=== PATIENT | female | born 1930 | race Caucasian/White ===

== ENCOUNTER 2017-09-16 12:51 | Inpatient (IN) | payer MEDICARE, OTHER ==
[2017-09-16 13:16] LABS: BEDSIDE GLUCOSE 173 MG/DL (83-110)
[2017-09-16 13:35] LABS: BASO # 0.1 10^3/uL (0.0-0.2); BASO % 0.5 % (0.0-1.0); EOS # 0.5 10^3/uL (0.0-0.50); EOS % 3.6 % (0.0-3.0); HEMATOCRIT 38.6 % (36.0-47.0); HEMOGLOBIN 12.1 g/dl (12.0-15.5); LYMPH # 2.5 10^3/uL (1.5-4.5); LYMPH % 18.7 % (24.0-44.0); MEAN CORPUSCULAR HEMOGLOBIN 29.7 pg (27.0-33.0); MEAN CORPUSCULAR HGB CONC 31.3 g/dl (32.0-36.5); MEAN CORPUSCULAR VOLUME 94.6 fl (80.0-96.0); MONO # 1.2 10^3/uL (0.0-0.8); NEUTROPHILS # 8.5 10^3/uL (1.8-7.7); NEUTROPHILS % 64.2 % (36.0-66.0); PLATELET COUNT, AUTOMATED 245 10^3/uL (150-450); RED BLOOD COUNT 4.08 10^6/uL (4.00-5.40); RED CELL DISTRIBUTION WIDTH 15.4 % (11.5-14.5); WHITE BLOOD COUNT 13.2 10^3/uL (4.0-10.0)
[2017-09-16 13:46] LABS: POS COUNT POS FLAG
[2017-09-16 14:03] LABS: ACETAMINOPHEN LEVEL < 2.0 UG/ML (10.0-30.0); ALBUMIN 3.3 GM/DL (3.2-5.2); ALBUMIN/GLOBULIN RATIO 1.03 (1.00-1.93); ALKALINE PHOSPHATASE 52 U/L (45-117); ALT/SGPT 26 U/L (12-78); ANION GAP 9 MEQ/L (8-16); AST/SGOT 12 U/L (7-37); BILIRUBIN,DIRECT < 0.1 MG/DL (0.0-0.2); BILIRUBIN,TOTAL 0.6 MG/DL (0.2-1.0); BLOOD UREA NITROGEN 45 MG/DL (7-18); CALCIUM LEVEL 11.8 MG/DL (8.8-10.2); CARBON DIOXIDE LEVEL 30 MEQ/L (21-32); CHLORIDE LEVEL 104 MEQ/L (98-107); CPK CREATINE PHOSPHOKINASE 23 U/L (26-192); CREATININE FOR GFR 1.36 MG/DL (0.55-1.30); ETHYL ALCOHOL (ETHANOL) 0.003 % (0.000-0.010); GLOMERULAR FILTRATION RATE 39.1 (>32); GLUCOSE, FASTING 150 MG/DL (70-100); POTASSIUM SERUM 4.4 MEQ/L (3.5-5.1); SALICYLATE LEVEL < 1.7 MG/DL (5.0-30.0); SODIUM LEVEL 143 MEQ/L (136-145); TOTAL PROTEIN 6.5 GM/DL (6.4-8.2)
[2017-09-16 15:27] LABS: BEDSIDE GLUCOSE 172 MG/DL (83-110)
[2017-09-16] MEDS: HYDROCORTISONE 100 MG/2 ML VIAL (J1720) IV (17:54)
[2017-09-16] MEDS: NS 500 ML IV (19:14)
[2017-09-16] MEDS: NS 1,000 ML IV (19:56)
[2017-09-16] MEDS: ADVAIR HFA 115/21MCG INHALER INH (21:00)
[2017-09-16] MEDS: levETIRAcetam 250MG TABLET (KEPPRA) PO (21:00)
[2017-09-16] MEDS: GABAPENTIN 300 MG CAP PO (21:00)
[2017-09-16] MEDS: DULoxetine 30 MG CAP (CYMBALTA) PO (21:00)
[2017-09-16] MEDS: MIRTAZAPINE 15 MG TAB PO (21:00)
[2017-09-16] MEDS ORDERED: oxyCODONE 5MG TAB PO (21:45)
[2017-09-16] MEDS ORDERED: BISACODYL 5 MG TAB PO (21:45)
[2017-09-16] MEDS ORDERED: ALBUTEROL 90 MCG/ACT 8GM HFA INHALER INH (21:45)
[2017-09-16] MEDS: CARVedilol 3.125 MG TAB PO (22:10)
[2017-09-17 00:49] LABS: ABG BASE EXCESS -0.8 (-2.0-2.0); ABG HCO3 25.4 MEQ/L (22.0-26.0); ABG O2 SATURATION 96.9 % (95.0-99.0); ABG PARTIAL PRESSURE CO2 48.2 mmHg (35.0-45.0); ABG PARTIAL PRESSURE O2 95.2 mmHg (75.0-100.0); ABG STANDARD HCO3 23.8 MEQ/L (22.0-26.0); ABG TOTAL CO2 26.8 MEQ/L (23.0-31.0); ABG pH (ARTERIAL) 7.339 UNITS (7.350-7.450)
[2017-09-17] MEDS: LATANOPROST 0.005% OPHTH SOLN 2.5 ML OS ×2 (00:56→21:49)
[2017-09-17 01:01] LABS: CALCIUM OXALATE CRYSTALS RFX SMALL; KETONE, URINE AUTO RFX TRACE mg/dL (NEGATIVE); LEUKOCYTE ESTERASE UR AUTO RFX NEGATIVE (NEGATIVE); NITRITE, URINE AUTO RFX NEGATIVE (NEGATIVE); RBC, URINE AUTO RFX 4 /HPF (0-3); SPECIFIC GRAVITY UR AUTO RFX 1.017 (1.002-1.035); SQUAM EPITHELIAL CELL UR AURFX 0 /HPF (0-6); WBC, URINE AUTO RFX 0 /HPF (0-3)
[2017-09-17 01:45] LABS: AMPHETAMINES LEVEL URINE NEGATIVE (NEGATIVE); BARBITURATES URINE NEGATIVE (NEGATIVE); BENZODIAZEPINES URINE NEGATIVE (NEGATIVE); CANNABINOIDS URINE NEGATIVE (NEGATIVE); COCAINE METABOLITE URINE NEGATIVE (NEGATIVE); METHADONE URINE NEGATIVE (NEGATIVE); OPIATES URINE POSITIVE (NEGATIVE); PHENCYCLIDINE URINE NEGATIVE (NEGATIVE)
[2017-09-17 04:47] LABS: LACTIC ACID SEPSIS PROTOCOL 1.5 MMOL/L (0.4-2.0)
[2017-09-17 04:52] LABS: ALBUMIN 2.9 GM/DL (3.2-5.2); ALBUMIN/GLOBULIN RATIO 0.81 (1.00-1.93); ALKALINE PHOSPHATASE 45 U/L (45-117); ALT/SGPT 29 U/L (12-78); ANION GAP 7 MEQ/L (8-16); AST/SGOT 55 U/L (7-37); BILIRUBIN,TOTAL 0.6 MG/DL (0.2-1.0); BLOOD UREA NITROGEN 59 MG/DL (7-18); CALCIUM LEVEL 11.2 MG/DL (8.8-10.2); CARBON DIOXIDE LEVEL 28 MEQ/L (21-32); CHLORIDE LEVEL 108 MEQ/L (98-107); CREATININE FOR GFR 1.97 MG/DL (0.55-1.30); GLOMERULAR FILTRATION RATE 25.5 (>32); GLUCOSE, FASTING 130 MG/DL (70-100); SODIUM LEVEL 143 MEQ/L (136-145); THYROID STIMULATING HORMONE 0.481 uIU/ML (0.358-3.740); TOTAL PROTEIN 6.5 GM/DL (6.4-8.2)
[2017-09-17 04:54] LABS: POTASSIUM SERUM 5.7 MEQ/L (3.5-5.1)
[2017-09-17] MEDS: HEPARIN SOD (PORCINE) 5000 UNITS/ML VIAL SC ×3 (06:00→21:49)
[2017-09-17 07:39] LABS: ANION GAP 6 MEQ/L (8-16); BLOOD UREA NITROGEN 61 MG/DL (7-18); CALCIUM LEVEL 11.6 MG/DL (8.8-10.2); CARBON DIOXIDE LEVEL 29 MEQ/L (21-32); CHLORIDE LEVEL 108 MEQ/L (98-107); CREATININE FOR GFR 1.88 MG/DL (0.55-1.30); GLOMERULAR FILTRATION RATE 26.9 (>32); GLUCOSE, FASTING 119 MG/DL (70-100); POTASSIUM SERUM 5.2 MEQ/L (3.5-5.1); SODIUM LEVEL 143 MEQ/L (136-145)
[2017-09-17] MEDS ORDERED: FUROSEMIDE 20 MG TAB PO (09:00)
[2017-09-17] MEDS ORDERED: FUROSEMIDE 40 MG TAB PO (09:00)
[2017-09-17] MEDS: DOCUSATE SODIUM 100 MG CAP PO (09:39)
[2017-09-17] MEDS: CARVedilol 3.125 MG TAB PO ×2 (09:40→21:57)
[2017-09-17] MEDS: PANTOPRAZOLE 40MG TAB (PROTONIX) PO (09:40)
[2017-09-17] MEDS: levETIRAcetam 250MG TABLET (KEPPRA) PO ×2 (09:40→21:48)
[2017-09-17] MEDS: DULoxetine 30 MG CAP (CYMBALTA) PO ×2 (09:40→21:48)
[2017-09-17] MEDS: predniSONE 10 MG TAB PO (09:41)
[2017-09-17] MEDS: GABAPENTIN 300 MG CAP PO ×2 (09:41→21:48)
[2017-09-17] MEDS: ADVAIR HFA 115/21MCG INHALER INH ×2 (09:41→21:28)
[2017-09-17] MEDS: VITAMIN D 1,000 INTERNATIONAL UNITS TABLET PO (09:42)
[2017-09-17] MEDS: NS 1,000 ML IV ×2 (09:49→21:35)
[2017-09-17 12:55] LABS: ANION GAP 8 MEQ/L (8-16); BLOOD UREA NITROGEN 63 MG/DL (7-18); CALCIUM LEVEL 11.2 MG/DL (8.8-10.2); CARBON DIOXIDE LEVEL 26 MEQ/L (21-32); CHLORIDE LEVEL 109 MEQ/L (98-107); CREATININE FOR GFR 1.63 MG/DL (0.55-1.30); GLOMERULAR FILTRATION RATE 31.7 (>32); GLUCOSE, FASTING 118 MG/DL (70-100); SODIUM LEVEL 143 MEQ/L (136-145)
[2017-09-17 12:56] LABS: POTASSIUM SERUM 5.3 MEQ/L (3.5-5.1)
[2017-09-17 17:03] LABS: KETONE, URINE AUTO RFX NEGATIVE (NEGATIVE); MUCUS, URINE RFX SMALL (NEGATIVE); RBC, URINE AUTO RFX 37 /HPF (0-3); SPECIFIC GRAVITY UR AUTO RFX 1.011 (1.002-1.035); SQUAM EPITHELIAL CELL UR AURFX 1 /HPF (0-6)
[2017-09-17 17:05] LABS: OSMOLALITY URINE 425 MOSM/KG (500-800)
[2017-09-17 17:13] LABS: LEUKOCYTE ESTERASE UR AUTO RFX 2+ (NEGATIVE); NITRITE, URINE AUTO RFX POSITIVE (NEGATIVE); WBC, URINE AUTO RFX 42 /HPF (0-3)
[2017-09-17 17:19] LABS: CHLORIDE,RANDOM URINE 24 MEQ/L; CREATININE,RANDOM URINE 84.4 MG/DL; POTASSIUM RANDOM URINE 60.4 MEQ/L; SODIUM,RANDOM URINE 26 MEQ/L; TOTAL PROTEIN,RANDOM URINE 13.8 MG/DL (0.0-12.0)
[2017-09-17 18:31] LABS: ANION GAP 9 MEQ/L (8-16); BLOOD UREA NITROGEN 63 MG/DL (7-18); CALCIUM LEVEL 11.2 MG/DL (8.8-10.2); CARBON DIOXIDE LEVEL 26 MEQ/L (21-32); CHLORIDE LEVEL 107 MEQ/L (98-107); CREATININE FOR GFR 1.62 MG/DL (0.55-1.30); GLOMERULAR FILTRATION RATE 31.9 (>32); GLUCOSE, FASTING 136 MG/DL (70-100); POTASSIUM SERUM 4.9 MEQ/L (3.5-5.1); SODIUM LEVEL 142 MEQ/L (136-145)
[2017-09-17] MEDS ORDERED: METOCLOPRAMIDE INJ 10MG/2ML VIAL (J2765) IV (21:00)
[2017-09-17] MEDS: MIRTAZAPINE 15 MG TAB PO (21:48)
[2017-09-18 00:22] LABS: ANION GAP 6 MEQ/L (8-16); BLOOD UREA NITROGEN 58 MG/DL (7-18); CALCIUM LEVEL 10.2 MG/DL (8.8-10.2); CARBON DIOXIDE LEVEL 27 MEQ/L (21-32); CHLORIDE LEVEL 110 MEQ/L (98-107); GLOMERULAR FILTRATION RATE 41.2 (>32); GLUCOSE, FASTING 102 MG/DL (70-100); POTASSIUM SERUM 4.5 MEQ/L (3.5-5.1); SODIUM LEVEL 143 MEQ/L (136-145)
[2017-09-18 04:30] LABS: HEMATOCRIT 31.4 % (36.0-47.0); MEAN CORPUSCULAR HEMOGLOBIN 29.8 pg (27.0-33.0); MEAN CORPUSCULAR HGB CONC 32.2 g/dl (32.0-36.5); MEAN CORPUSCULAR VOLUME 92.6 fl (80.0-96.0); PLATELET COUNT, AUTOMATED 192 10^3/uL (150-450); RED BLOOD COUNT 3.39 10^6/uL (4.00-5.40); RED CELL DISTRIBUTION WIDTH 15.4 % (11.5-14.5); WHITE BLOOD COUNT 12.1 10^3/uL (4.0-10.0)
[2017-09-18 04:37] LABS: HEMOGLOBIN 10.1 g/dl (12.0-15.5)
[2017-09-18 05:17] LABS: ALBUMIN 2.7 GM/DL (3.2-5.2); ALBUMIN/GLOBULIN RATIO 0.93 (1.00-1.93); ALKALINE PHOSPHATASE 40 U/L (45-117); ALT/SGPT 25 U/L (12-78); ANION GAP 6 MEQ/L (8-16); AST/SGOT 48 U/L (7-37); BILIRUBIN,TOTAL 0.6 MG/DL (0.2-1.0); BLOOD UREA NITROGEN 56 MG/DL (7-18); CALCIUM LEVEL 10.2 MG/DL (8.8-10.2); CARBON DIOXIDE LEVEL 27 MEQ/L (21-32); CHLORIDE LEVEL 111 MEQ/L (98-107); CREATININE FOR GFR 1.15 MG/DL (0.55-1.30); GLOMERULAR FILTRATION RATE 47.4 (>32); GLUCOSE, FASTING 80 MG/DL (70-100); MAGNESIUM LEVEL 2.3 MG/DL (1.8-2.4); POTASSIUM SERUM 4.4 MEQ/L (3.5-5.1); SODIUM LEVEL 144 MEQ/L (136-145); TOTAL PROTEIN 5.6 GM/DL (6.4-8.2)
[2017-09-18] MEDS: HEPARIN SOD (PORCINE) 5000 UNITS/ML VIAL SC ×3 (05:31→22:13)
[2017-09-18] MEDS: ADVAIR HFA 115/21MCG INHALER INH ×2 (08:31→23:42)
[2017-09-18] MEDS: GABAPENTIN 300 MG CAP PO ×2 (08:40→20:27)
[2017-09-18] MEDS: cefTRIAXone SOD 1 GM in D5W MINI-BAG PLUS 50 ML IV (08:40)
[2017-09-18] MEDS: DOCUSATE SODIUM 100 MG CAP PO (08:41)
[2017-09-18] MEDS: PANTOPRAZOLE 40MG TAB (PROTONIX) PO (08:41)
[2017-09-18] MEDS: predniSONE 10 MG TAB PO (08:41)
[2017-09-18] MEDS: CARVedilol 3.125 MG TAB PO ×2 (08:41→20:27)
[2017-09-18] MEDS: levETIRAcetam 250MG TABLET (KEPPRA) PO ×2 (08:42→20:28)
[2017-09-18] MEDS: DULoxetine 30 MG CAP (CYMBALTA) PO ×2 (08:42→20:28)
[2017-09-18 10:38] LABS: PTH INTACT < 6.3 PG/ML (18.5-88.0)
[2017-09-18 11:00] LABS: TOTAL 25(OH) VITAMIN D 60.6 NG/ML (30.0-100.0)
[2017-09-18 12:50] LABS: ANION GAP 8 MEQ/L (8-16); BLOOD UREA NITROGEN 51 MG/DL (7-18); CALCIUM LEVEL 10.7 MG/DL (8.8-10.2); CARBON DIOXIDE LEVEL 25 MEQ/L (21-32); CHLORIDE LEVEL 108 MEQ/L (98-107); CREATININE FOR GFR 1.15 MG/DL (0.55-1.30); GLOMERULAR FILTRATION RATE 47.4 (>32); GLUCOSE, FASTING 97 MG/DL (70-100); POTASSIUM SERUM 4.5 MEQ/L (3.5-5.1); SODIUM LEVEL 141 MEQ/L (136-145)
[2017-09-18] MEDS ORDERED: SLF 3 ML SYR IV (18:45)
[2017-09-18] MEDS: MIRTAZAPINE 15 MG TAB PO (20:28)
[2017-09-18] MEDS: LATANOPROST 0.005% OPHTH SOLN 2.5 ML OS (20:28)
[2017-09-18] MEDS: SLF 3 ML SYR IV (22:13)
[2017-09-19 04:43] LABS: HEMATOCRIT 32.9 % (36.0-47.0); HEMOGLOBIN 10.6 g/dl (12.0-15.5); MEAN CORPUSCULAR HEMOGLOBIN 29.6 pg (27.0-33.0); MEAN CORPUSCULAR HGB CONC 32.2 g/dl (32.0-36.5); MEAN CORPUSCULAR VOLUME 91.9 fl (80.0-96.0); PLATELET COUNT, AUTOMATED 212 10^3/uL (150-450); RED BLOOD COUNT 3.58 10^6/uL (4.00-5.40); RED CELL DISTRIBUTION WIDTH 15.2 % (11.5-14.5); WHITE BLOOD COUNT 9.7 10^3/uL (4.0-10.0)
[2017-09-19 05:05] LABS: ALBUMIN 2.6 GM/DL (3.2-5.2); ALBUMIN/GLOBULIN RATIO 0.74 (1.00-1.93); ALKALINE PHOSPHATASE 40 U/L (45-117); ALT/SGPT 24 U/L (12-78); ANION GAP 6 MEQ/L (8-16); AST/SGOT 27 U/L (7-37); BILIRUBIN,TOTAL 0.4 MG/DL (0.2-1.0); BLOOD UREA NITROGEN 45 MG/DL (7-18); CALCIUM LEVEL 11.1 MG/DL (8.8-10.2); CARBON DIOXIDE LEVEL 28 MEQ/L (21-32); CHLORIDE LEVEL 112 MEQ/L (98-107); CREATININE FOR GFR 0.95 MG/DL (0.55-1.30); GLOMERULAR FILTRATION RATE 59.1 (>32); GLUCOSE, FASTING 85 MG/DL (70-100); MAGNESIUM LEVEL 2.2 MG/DL (1.8-2.4); POTASSIUM SERUM 3.9 MEQ/L (3.5-5.1); SODIUM LEVEL 146 MEQ/L (136-145); TOTAL PROTEIN 6.1 GM/DL (6.4-8.2)
[2017-09-19] MEDS: SLF 3 ML SYR IV ×3 (06:08→21:50)
[2017-09-19] MEDS: HEPARIN SOD (PORCINE) 5000 UNITS/ML VIAL SC ×3 (06:08→21:49)
[2017-09-19] MEDS: ADVAIR HFA 115/21MCG INHALER INH ×2 (07:07→20:27)
[2017-09-19] MEDS: cefTRIAXone SOD 1 GM in D5W MINI-BAG PLUS 50 ML IV (08:06)
[2017-09-19] MEDS: GABAPENTIN 300 MG CAP PO ×2 (09:38→21:49)
[2017-09-19] MEDS: DULoxetine 30 MG CAP (CYMBALTA) PO ×2 (09:38→21:49)
[2017-09-19] MEDS: predniSONE 10 MG TAB PO (09:38)
[2017-09-19] MEDS: DOCUSATE SODIUM 100 MG CAP PO (09:38)
[2017-09-19] MEDS: PANTOPRAZOLE 40MG TAB (PROTONIX) PO (09:38)
[2017-09-19] MEDS: CARVedilol 3.125 MG TAB PO ×2 (09:38→21:49)
[2017-09-19] MEDS: levETIRAcetam 250MG TABLET (KEPPRA) PO ×2 (09:39→21:49)
[2017-09-19] MEDS: ACETAMINOPHEN 325 MG/10.15 ML UDC PO (12:32)
[2017-09-19] MEDS: MIRTAZAPINE 15 MG TAB PO (21:49)
[2017-09-19] MEDS: LATANOPROST 0.005% OPHTH SOLN 2.5 ML OS (21:49)
[2017-09-20 00:08] LABS: VITAMIN D 1,25 DIHYDROXY 81.2 pg/mL (19.9-79.3)
[2017-09-20] MEDS: SLF 3 ML SYR IV (06:00)
[2017-09-20] MEDS: HEPARIN SOD (PORCINE) 5000 UNITS/ML VIAL SC (06:00)
[2017-09-20 06:35] LABS: HEMATOCRIT 33.8 % (36.0-47.0); HEMOGLOBIN 10.8 g/dl (12.0-15.5); MEAN CORPUSCULAR VOLUME 90.6 fl (80.0-96.0); PLATELET COUNT, AUTOMATED 223 10^3/uL (150-450); RED BLOOD COUNT 3.73 10^6/uL (4.00-5.40); RED CELL DISTRIBUTION WIDTH 14.8 % (11.5-14.5); WHITE BLOOD COUNT 9.2 10^3/uL (4.0-10.0)
[2017-09-20 06:56] LABS: ALBUMIN 2.7 GM/DL (3.2-5.2); ALBUMIN/GLOBULIN RATIO 0.77 (1.00-1.93); ALKALINE PHOSPHATASE 38 U/L (45-117); ALT/SGPT 22 U/L (12-78); ANION GAP 6 MEQ/L (8-16); AST/SGOT 17 U/L (7-37); BILIRUBIN,TOTAL 0.4 MG/DL (0.2-1.0); BLOOD UREA NITROGEN 37 MG/DL (7-18); CALCIUM LEVEL 10.6 MG/DL (8.8-10.2); CARBON DIOXIDE LEVEL 28 MEQ/L (21-32); CHLORIDE LEVEL 112 MEQ/L (98-107); CREATININE FOR GFR 0.93 MG/DL (0.55-1.30); GLOMERULAR FILTRATION RATE > 60.0 (>32); GLUCOSE, FASTING 92 MG/DL (70-100); POTASSIUM SERUM 3.7 MEQ/L (3.5-5.1); SODIUM LEVEL 146 MEQ/L (136-145); TOTAL PROTEIN 6.2 GM/DL (6.4-8.2)
[2017-09-20] MEDS: ADVAIR HFA 115/21MCG INHALER INH (08:19)
[2017-09-20] MEDS: DULoxetine 30 MG CAP (CYMBALTA) PO (09:00)
[2017-09-20] MEDS: predniSONE 10 MG TAB PO (09:00)
[2017-09-20] MEDS: levETIRAcetam 250MG TABLET (KEPPRA) PO (09:01)
[2017-09-20] MEDS: GABAPENTIN 300 MG CAP PO (09:01)
[2017-09-20] MEDS: CARVedilol 3.125 MG TAB PO (09:01)
[2017-09-20] MEDS: PANTOPRAZOLE 40MG TAB (PROTONIX) PO (09:01)
[2017-09-20] MEDS: DOCUSATE SODIUM 100 MG CAP PO (09:01)
[2017-09-20] MEDS: cefTRIAXone SOD 1 GM in D5W MINI-BAG PLUS 50 ML IV (09:02)
[2017-09-21 00:08] LABS: LEVETIRACETAM (KEPPRA) 18.5 ug/mL (10.0-40.0)
== END 2017-09-20 11:50 | disposition home or self-care (01) | DRG 917 ==
LOC: M PCU 09-18 17:45 → M ED 12:51 → M ED INP 21:38 → M ICU 23:52
PROVIDERS: Internal Medicine
DX: T44.8X1A Poisoning by centrally-acting and adrenergic-neuron-blocking agents, accidental (unintentional), initial encounter (principal); G93.40 Encephalopathy, unspecified; E87.2 Acidosis; N17.9 Acute kidney failure, unspecified; N39.0 Urinary tract infection, site not specified; F41.9 Anxiety disorder, unspecified; F32.9 Major depressive disorder, single episode, unspecified; F03.90 Unspecified dementia, unspecified severity, without behavioral disturbance, psychotic disturbance, mood disturbance, and anxiety; J44.9 Chronic obstructive pulmonary disease, unspecified; E87.6 Hypokalemia; E83.52 Hypercalcemia; N18.3 Chronic kidney disease, stage 3 (moderate); B96.20 Unspecified Escherichia coli [E. coli] as the cause of diseases classified elsewhere; E86.0 Dehydration; Z79.899 Other long term (current) drug therapy; Z79.52 Long term (current) use of systemic steroids; Z88.1 Allergy status to other antibiotic agents; Z88.2 Allergy status to sulfonamides; Z91.013 Allergy to seafood; Z85.3 Personal history of malignant neoplasm of breast